=== PATIENT | male | born 1955 | race Caucasian/White ===

== ENCOUNTER 2021-07-27 09:31 | Outpatient (REF) | payer OTHER, SELFPAY ==
[2021-07-27 10:33] LABS: MANUAL DIFF FLAG NO
[2021-07-27 10:54] LABS: Basophils Absolute Auto 0.1 X10*3/uL (0.0-0.2); Basophils Percent Auto 1.3 % (0-2); Eosinophils Absolute Auto 0.4 X10*3/uL (0.0-0.4); Eosinophils Percent Auto 3.7 % (0-4); Hematocrit 47.1 % (42-52); Hemoglobin 15.8 g/dl (14.0-18.0); Imm Gran Abs Auto 0.14 X10*3/uL (0.00-0.03); Imm Gran Pct Auto 1.3 % (0.0-0.4); Lymphocytes Absolute Auto 3.4 X10*3/uL (1.2-4.9); Lymphocytes Percent Auto 31.9 % (20-40); Mean Corpuscular HGB Conc 33.5 g/dl (31.0-36.0); Mean Corpuscular Hemoglobin 31.7 pg (27.0-33.0); Mean Corpuscular Volume 94.4 fL (80-98); Mean Platelet Volume 10.9 fL (9.4-12.4); Monocytes Absolute Auto 1.1 X10*3/uL (0.1-1.2); Monocytes Percent Auto 10.4 % (2-11); Neutrophils Absolute Auto 5.5 X10*3/uL (2.0-8.3); Neutrophils Percent Auto 51.4 % (45-73); Platelet Count 187 X10*3/uL (160-400); Red Blood Count 4.99 X10*6/uL (4.60-5.80); White Blood Count 10.7 X10*3/uL (4.8-10.8)
[2021-07-27 11:20] LABS: Alanine Aminotransferase 38 U/L (0-40); Albumin Level 4.1 g/dL (3.5-5.0); Alkaline Phosphatase 112 U/L (39-117); Anion Gap 12 (12-20); Aspartate Amino Transferase 39 U/L (5-37); Bilirubin Total 0.9 mg/dL (0.0-1.0); Blood Urea Nitrogen 8 mg/dL (9-16); Calcium 9.6 mg/dL (8.4-10.2); Carbon Dioxide 25 mmol/L (22-29); Chloride 107 mmol/L (96-108); Estimated Glomerular Filt Rate > 60; Glucose Random 97 mg/dL (60-115); Potassium 4.9 mmol/L (3.3-5.1); Sodium 139 mmol/L (135-145); Total Protein 7.4 g/dL (6.5-8.0)
== END 2021-07-27 09:32 | disposition home or self-care (01) ==
LOC: HO.LAB 09:31
PROVIDERS: PCP Registered Nurse; Visit Provider Nurse Practitioner
DX: D12.6 Benign neoplasm of colon, unspecified (principal); G47.33 Obstructive sleep apnea (adult) (pediatric); I21.4 Non-ST elevation (NSTEMI) myocardial infarction; J44.9 Chronic obstructive pulmonary disease, unspecified
CPT/HCPCS: 36415; 80053; 85025; 99212

== ENCOUNTER 2021-11-12 08:13 | Day surgery (SDC) | payer OTHER, SELFPAY ==
--- NOTE | 2021-11-09 11:58 | P.CONAN_ITS ---
Documented by User: Kalie Potts NP 11/09/21 13:54 HPI - Anesthesia Eval Consult details Narrative: 66yo M for Colonoscopy Unable to reach patient by phone. 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 Per 09/2021 PCP visit, last seen by cardiology 07/31 [facility] Active Problems Active Problems: All Active Problems (Updated 07/24/21 @ 14:48 by LEIGH Barbosa) Tubular adenoma of colon (Acute) Osteoporosis (Acute) GERD (gastroesophageal reflux disease) (Acute) Osteoarthritis of both knees (Acute) Lumbar degenerative disc disease (Acute) Chronic pain syndrome (Acute) High cholesterol (Acute) Atherosclerotic cardiovascular disease (Acute) NSTEMI (non-ST elevated myocardial infarction) (Acute) COPD (chronic obstructive pulmonary disease) (Acute) HENRY (obstructive sleep apnea) (Acute) Past Medical History Medical History Atherosclerotic cardiovascular disease Chronic pain syndrome COPD (chronic obstructive pulmonary disease) GERD (gastroesophageal reflux disease) High cholesterol Lumbar degenerative disc disease NSTEMI (non-ST elevated myocardial infarction) HENRY (obstructive sleep apnea) Osteoarthritis of both knees Presence of stent in LAD coronary artery Surgical History Surgical History H/O colonoscopy History of appendectomy Social History Social History Patient Tobacco Use Status: Current everyday Tobacco user Tobacco use type: Cigarette Cigarette Packs Per Day: 1 Cigarettes Per Day: 20.0 Meds Allergies Allergy/AdvReac Type Severity Reaction Status Date / Time No Known Allergies Allergy Verified 11/12/21 08:28 [No Known Allergies*] Home Medications Medication Instructions Recorded Confirmed Last Taken Type aspirin 81 mg 81 mg PO DAILY 07/27/21 Unknown History tablet,delayed release atorvastatin 20 20 mg PO DAILY 07/27/21 Unknown History mg tablet calcium carbonate 1 tab PO DAILY 07/27/21 Unknown History 1,000 mg-vitamin D3 20 mcg (800 unit) tablet carvedilol 6.25 6.25 mg PO BID 07/27/21 Unknown History mg tablet latanoprost 0.005 1 drp OPHTHALMIC 07/27/21 Unknown History % eye drops (EYE) QPM ml omeprazole 40 mg 40 mg PO DAILY 07/27/21 Unknown History capsule,delayed release tramadol 50 mg 50 mg PO Q6H PRN 07/27/21 Unknown History tablet Exam Exam Date and Time: November 09, 2021 1158 Documented by User: Margarita Bhat MD 11/12/21 09:21 [facility] Past Medical History Medical History Atherosclerotic cardiovascular disease Chronic pain syndrome COPD (chronic obstructive pulmonary disease) GERD (gastroesophageal reflux disease) High cholesterol Lumbar degenerative disc disease NSTEMI (non-ST elevated myocardial infarction) HENRY (obstructive sleep apnea) Osteoarthritis of both knees Presence of stent in LAD coronary artery Family History Family history of problems with anesthesia: No Surgical History Surgical History H/O colonoscopy History of appendectomy History of Problems with Anesthesia: No Social History Social History Patient Tobacco Use Status: Current everyday Tobacco user Tobacco use type: Cigarette Cigarette Packs Per Day: 1 Cigarettes Per Day: 20.0 Meds Allergies Allergy/AdvReac Type Severity Reaction Status Date / Time No Known Allergies Allergy Verified 11/12/21 08:28 [No Known Allergies*] Home Medications Medication Instructions Recorded Confirmed Last Taken Type aspirin 81 mg 81 mg PO DAILY 07/27/21 Unknown History tablet,delayed release atorvastatin 20 20 mg PO DAILY 07/27/21 Unknown History mg tablet calcium carbonate 1 tab PO DAILY 07/27/21 Unknown History 1,000 mg-vitamin D3 20 mcg (800 unit) tablet carvedilol 6.25 6.25 mg PO BID 07/27/21 Unknown History mg tablet latanoprost 0.005 1 drp OPHTHALMIC 07/27/21 Unknown History % eye drops (EYE) QPM ml omeprazole 40 mg 40 mg PO DAILY 07/27/21 Unknown History capsule,delayed release tramadol 50 mg 50 mg PO Q6H PRN 07/27/21 Unknown History tablet Exam Airway Mallampati Class: II TM Dist: >3cm Neck ROM: Full Heart: rrr Lungs: cta Assessment and Plan Assessment Anesthesia Assessment: Anesthesia Plan Discussed and Chart Reviewed Final Anesthetic Review Family History of Problems with Anesthesia: No History of Problems with Anesthesia: No NPO: Yes ASA Class: III Final Preanesthetic Review: No Changes in Pt Med Stat, Meds/Allgs Chart Reviewed and Consent Obtained/Reviewed Patient Risk: Intermediate Procedure Risk: Intermediate Anesthetic Plan Anesthetic Plan: MAC: Disposition: Standard PACU
[2021-11-12 08:28] VITALS: BMI 35.5
[2021-11-12 08:34] VITALS: BP 145/89; PULSE 66; RESP 16; TEMP 36.9; O2SAT 96
[2021-11-12] MEDS: Lactated Ringers 1,000 ML 100 ML IVCONT (08:56)
--- NOTE | 2021-11-12 09:17 | P.HPSUR_ITS ---
Pre-Procedural Eval Section A Date of Service: 11/12/21 Section B Chief Complaint: Tubular Adenoma of Colon Relevant Family History (Specify if Yes): No Relevant Social History: Tobacco Use Present Medications: see Short Stay Collaborative assessment Medical History: Significant History (Atherosclerotic cardiovascular disease Chronic pain syndrome COPD (chronic obstructive pulmonary disease) GERD (leticia roesophageal reflux disease) High cholesterol Lumbar degenerative disc disease NSTEMI (non-ST elevated myocardial infarction) HENRY (obstructive sleep apnea) Osteoarthritis of both knees) History of Previous Operations: Relevant previous surgery/procedure and date(s) (H/O colonoscopy History of appendectomy) Allergies: Allergies Allergy/AdvReac Type Severity Reaction Status Date / Time No Known Allergies Allergy Verified 11/12/21 08:28 [No Known Allergies*] Review of Systems Sugical H&P ROS: Negative: Constitution, Cardiovascular, Respiratory, Neurological, Psychiatric, Hem-Onc, Allergic/Immunologic, Gastrointestinal, Genitourinary, Musculoskeletal, Integumentary, Endocrine and Eyes/Ears/Nose/Throat Exam Surgical H&P Exam: Normal: HEENT, Normal: Heart, Normal: Lungs, Normal: Extremities, Normal: Abdomen, Normal: Skin and Normal: Neurological Plan Diagnosis/Plan: Unchanged I have reviewed the history and physical and performed a pertinent physical examination on my patient. No changes have occurred unless specified.
--- NOTE | 2021-11-12 10:12 | P.BOP_ITS ---
Brief Operative Note Date of Service: 11/12/21 Pre-op diagnosis: hx of polyps Post-op diagnosis: same Procedure: see op note Surgeon: Yfn Thompson MD Anesthesia: MAC Was an Post Acute Care Nurse used for this Procedure?: No Estimated blood loss (mL): 0 Condition: stable Disposition: PACU
--- NOTE | 2021-11-12 10:13 | P.OP_ITS ---
Operative Note Operative Note Date of Service: 11/12/21 Narrative: Operative Information Procedure Description: Colonoscopy COLONOSCOPY Instrument: Olympus variable stiffness ADULT scope 190L Colonoscopy Monitoring: Vital signs and clinical assessment, continuous EKG monitoring, Pulse oximetry, Carbon Dioxide monitoring and blood pressure monitoring were done throughout the procedure. Colon withdrawal time was 31 minutes. Procedure: The patient was placed in the left lateral decubitis position and pre-procedure medications were administered. After a digital rectal examination of the ano-rectum, the video colonoscope was inserted into the rectum and advanced through the colon to the cecum/TI. The colonoscope was slowly withdrawn in a retrograde panoramic fashion and the colon mucosa was carefully examined including a retroflexed view of the rectum. Findings and interventions are described below. Procedure Difficulty: moderate due to looping Findings: Terminal Ileum-not intubated Cecum:normal Ascending Colon: 4-6 mm sessile polyp removed with forceps Transverse Colon -normal, few diverticula noted Descending Colon:distal area with lipoma 15 mm. mid descending area with lateral spreading granular lesion 15-20 mm in length (Nyla 0-IIa) , lifted with orise and then removed piece meal with hot snare, and edges ablated with soft tip coag. Sigmoid Colon: many diverticula seen of varying sizes Rectum: Retroflexion with moderate sized internal hemorrhoids, grade I with skin tags Anorectum - normal Colon preparation: [place] Bowel Preparation Scale Right colon; 2 Transverse colon: 2 Left colon; 2 (0 = Unprepared colon segment with mucosa not seen due to solid stool that cannot be cleared. 1 = Portion of mucosa of the colon segment seen, but other areas of the colon segment not well seen due to staining, residual stool and/or opaque liquid. 2 = Minor amount of residual staining, small fragments of stool and/or opaque liquid, but mucosa of colon segment seen well. 3 = Entire mucosa of colon segment seen well with no residual staining, small fragments of stool or opaque liquid) Impression and Post Procedure Diagnosis: polyps internal hemorrhoids diverticular disease lipoma Plan: High fiber diet leaflet Avoid straining at stool, epsom salts and sitz bath, anusol supps or cream Repeat Colonoscopy in 1 year or earlier if clinically indicated, next time I will use distal attachment Above findings were reviewed with the patient and relevant handouts were provided if indicated.
[2021-11-12 10:16] VITALS: BP 127/79; PULSE 89; RESP 16; TEMP 37.3; O2SAT 96
[2021-11-12 10:31] VITALS: BP 141/78; PULSE 75; RESP 18; TEMP 37.1; O2SAT 96
== END 2021-11-12 11:50 | disposition home or self-care (01) ==
PROVIDERS: PCP Registered Nurse; Visit Provider Internal Medicine Gastroenterology
PROC: 0DJD8ZZ Inspection of Lower Intestinal Tract, Via Natural or Artificial Opening Endoscopic (ICD-10-PCS; CPT 45378; principal; 2021-11-12 09:20)
DX: Z12.11 Encounter for screening for malignant neoplasm of colon (principal); Z86.010 Personal history of colon polyps; D12.4 Benign neoplasm of descending colon; K63.5 Polyp of colon; K57.30 Diverticulosis of large intestine without perforation or abscess without bleeding; K64.0 First degree hemorrhoids; K21.9 Gastro-esophageal reflux disease without esophagitis; G47.33 Obstructive sleep apnea (adult) (pediatric); J44.9 Chronic obstructive pulmonary disease, unspecified; I25.10 Atherosclerotic heart disease of native coronary artery without angina pectoris; I25.2 Old myocardial infarction; E78.00 Pure hypercholesterolemia, unspecified; G89.4 Chronic pain syndrome; M81.0 Age-related osteoporosis without current pathological fracture; Z79.82 Long term (current) use of aspirin; Z79.899 Other long term (current) drug therapy; F17.210 Nicotine dependence, cigarettes, uncomplicated
CPT/HCPCS: 45385; 45380; 45381; 88305

== ENCOUNTER → 2021-12-11 09:37 | Outpatient (BNVA) | payer OTHER, SELFPAY | PROVIDERS: PCP Registered Nurse; Visit Provider Nurse Practitioner | DX: D12.6 Benign neoplasm of colon, unspecified (principal); J44.9 Chronic obstructive pulmonary disease, unspecified; I21.4 Non-ST elevation (NSTEMI) myocardial infarction; G47.33 Obstructive sleep apnea (adult) (pediatric); F17.210 Nicotine dependence, cigarettes, uncomplicated | CPT/HCPCS: 99212 ==

== ENCOUNTER 2022-09-10 10:41 | Outpatient (REF) | payer OTHER, SELFPAY ==
[2022-09-10 12:34] LABS: Alanine Aminotransferase 21 U/L (0-40); Alkaline Phosphatase 85 U/L (39-117); Anion Gap 11 (12-20); Aspartate Amino Transferase 20 U/L (5-37); Bilirubin Total 0.8 mg/dL (0.0-1.0); Blood Urea Nitrogen 10 mg/dL (9-16); Calcium 9.2 mg/dL (8.4-10.2); Carbon Dioxide 27 mmol/L (22-29); Chloride 105 mmol/L (96-108); Estimated Glomerular Filt Rate > 60; Glucose Random 90 mg/dL (60-115); Potassium 5.2 mmol/L (3.3-5.1); Sodium 138 mmol/L (135-145)
== END 2022-09-10 10:42 | disposition home or self-care (01) ==
LOC: HO.LAB 10:41
PROVIDERS: PCP Registered Nurse; Visit Provider Nurse Practitioner
DX: Z01.818 Encounter for other preprocedural examination (principal); D12.6 Benign neoplasm of colon, unspecified; G47.33 Obstructive sleep apnea (adult) (pediatric); J44.9 Chronic obstructive pulmonary disease, unspecified
CPT/HCPCS: 36415; 80053; 99212

== ENCOUNTER 2022-11-28 10:17 | Day surgery (SDC) | payer OTHER, SELFPAY ==
[2022-11-26 13:11] VITALS: BMI 34.0
[2022-11-28 10:29] VITALS: BP 129/72; PULSE 80; RESP 17; TEMP 36.2; O2SAT 97; BMI 33.5
--- NOTE | 2022-11-28 10:46 | MHC.SHP ---
Pre-Procedural Eval Section A Date of Service: 11/28/22 Section B Chief Complaint: Benign neoplasm, Relevant Family History (Specify if Yes): No Relevant Social History: Tobacco Use Present Medications: see Short Stay Collaborative assessment Medical History: Significant History ( Atherosclerotic cardiovascular disease Chronic pain syndrome COPD (chronic obstructive pulmonary disease) GERD (gastroesophageal reflux disease) High cholesterol Lumbar degenerative disc disease NSTEMI (non-ST elevated myocardial infarction) HENRY (obstructive sleep apnea) Osteoarthritis of both knee) History of Previous Operations: Relevant previous surgery/procedure and date(s) (H/O colonoscopy History of appendectomy) Allergies: Allergies Allergy/AdvReac Type Severity Reaction Status Date / Time mold Allergy Severe Anaphylaxis Verified 11/26/22 13:07 black mold Allergy Hives, Uncoded 11/26/22 13:07 anaphylaxis Review of Systems Sugical H&P ROS: Negative: Constitution, Cardiovascular, Respiratory, Neurological, Psychiatric, Hem-Onc, Allergic/Immunologic, Gastrointestinal, Genitourinary, Musculoskeletal, Integumentary, Endocrine and Eyes/Ears/Nose/Throat Exam Surgical H&P Exam: Normal: HEENT, Normal: Heart, Normal: Lungs, Normal: Extremities, Normal: Abdomen, Normal: Skin and Normal: Neurological Plan Diagnosis/Plan: Unchanged I have reviewed the history and physical and performed a pertinent physical examination on my patient. No changes have occurred unless specified. Time Spent With Patient Time: Total time managing care of this patient today ____ minutes.
--- NOTE | 2022-11-28 10:52 | HO.ANESPROP2 ---
[facility] Active Problems Active Problems: All Active Problems (Updated 09/10/22 @ 17:39 by LEIGH Barbosa) HENRY (obstructive sleep apnea) (Acute) COPD (chronic obstructive pulmonary disease) (Acute) Pre-op examination (Acute) Tubulovillous adenoma of colon (Acute) GERD (gastroesophageal reflux disease) (Acute) Tubular adenoma of colon (Acute) Osteoporosis (Acute) Past Medical History Medical History Atherosclerotic cardiovascular disease Chronic pain syndrome COPD (chronic obstructive pulmonary disease) GERD (gastroesophageal reflux disease) High cholesterol Lumbar degenerative disc disease NSTEMI (non-ST elevated myocardial infarction) HENRY (obstructive sleep apnea) Osteoarthritis of both knees Presence of stent in LAD coronary artery Family History Family history of problems with anesthesia: No Surgical History Surgical History H/O colonoscopy History of appendectomy History of Problems with Anesthesia: No Social History Social History Alcohol intake: current Patient Tobacco Use Status: Current everyday Tobacco user Tobacco use type: Cigarette Cigarette Packs Per Day: 1 Cigarettes Per Day: 20.0 Use of substances other than those prescribed or required for medical reasons: Yes Substance Use Type: Marijuana Substance Use Frequency: Occasionally Advance Directives: No Advance Directives Information Provided: Yes Meds Allergies Allergy/AdvReac Type Severity Reaction Status Date / Time mold Allergy Severe Anaphylaxis Verified 11/26/22 13:07 black mold Allergy Hives, Uncoded 11/26/22 13:07 anaphylaxis Home Medications Medication Instructions Recorded Confirmed Last Taken Type aspirin 81 mg tablet,delayed 81 mg PO DAILY 07/27/21 11/26/22 Unknown History release atorvastatin 20 mg tablet 20 mg PO DAILY 07/27/21 11/26/22 Unknown History calcium carbonate 1,000 mg-vitamin 1 tab PO DAILY 07/27/21 11/26/22 Unknown History D3 20 mcg (800 unit) tablet carvedilol 6.25 mg tablet 6.25 mg PO BID 07/27/21 11/26/22 Unknown History latanoprost 0.005 % eye drops 1 drp ophthalmic (eye) QPM 07/27/21 11/26/22 Unknown History omeprazole 40 mg capsule,delayed 40 mg PO DAILY 07/27/21 11/26/22 Unknown History release tramadol 50 mg tablet 50 mg PO Q6H PRN Pain 07/27/21 11/26/22 Unknown History albuterol sulfate 90 mcg/actuation 2 puff inhalation Q4-6H PRN 09/10/22 11/26/22 Unknown History aerosol inhaler Wheezing clotrimazole 1 % topical cream appl topical BID 09/10/22 Unknown History lisinopril 10 mg tablet 10 mg PO DAILY 09/10/22 11/26/22 Unknown History nicotine 21 mg/24 hr daily 11/26/22 11/26/22 Unknown History transdermal patch Exam Exam Date and Time: November 28, 2022 1052 Height,Weight and Vital Signs: Height 5 ft 6 in Weight 94.347 kg Last Vital Signs Temp 97.2 F 11/28/22 10:29 Pulse 80 11/28/22 10:29 Resp 17 11/28/22 10:29 BP 129/72 11/28/22 10:29 Pulse Ox 97 11/28/22 10:29 O2 Del Method 11/28/22 10:29 Airway Mallampati Class: III (Edentulous. Full monge.) TM Dist: >3cm Neck ROM: Full Denture: Upper Partial: Lower Loose/Missing/Broken Teeth: Yes, Upper and Lower Heart: RRR Lungs: CTA Assessment and Plan Assessment Anesthesia Assessment: Anesthesia Plan Discussed and Chart Reviewed Final Anesthetic Review Family History of Problems with Anesthesia: No History of Problems with Anesthesia: No NPO: Yes ASA Class: III Final Preanesthetic Review: Meds/Allgs Chart Reviewed, Consent Obtained/Reviewed and Anes Risks/Benef Reviewed Patient Risk: Intermediate Procedure Risk: Low Anesthetic Plan Anesthetic Plan: MAC: Disposition: Standard PACU
--- NOTE | 2022-11-28 10:59 | W.PM.OPN ---
Operative Note Operative Note Date of Service: 11/28/22 Narrative: Operative Information Procedure Description: Colonoscopy Indication: hx of polyps Anesthesia: MAC COLONOSCOPY Instrument: Olympus variable stiffness pediatric scope 190L Colonoscopy Monitoring: Vital signs and clinical assessment, continuous EKG monitoring, Pulse oximetry, Carbon Dioxide monitoring and blood pressure monitoring were done throughout the procedure. Colon withdrawal time was 19 minutes. Procedure: The patient was placed in the left lateral decubitis position and pre-procedure medications were administered. After a digital rectal examination of the ano-rectum, the video colonoscope was inserted into the rectum and advanced through the colon to the cecum/TI. The colonoscope was slowly withdrawn in a retrograde panoramic fashion and the colon mucosa was carefully examined including a retroflexed view of the rectum. Findings and interventions are described below. Procedure Difficulty: mdoerate, pressure applied to reach cecum, distal attachment used Findings: Terminal Ileum-not intubated Cecum:normal, not fully seen due to thick debris Ascending Colon: few scattered wide mouth tics seen, moderate sized lipoma at hepatic, 5-6 mm sessile polyp removed with cold forceps Transverse Colon -normal Descending Colon: 7-8 mm sessile polyp removed with cold snare Sigmoid Colon: moderate severe diverticulosis, x 1 sessile polyp 7-8 mm removed with cold snare and another sessile polyp 5-7 mm removed with cold forceps Rectum: Retroflexion with medium sized internal hemorrhoids, grade I, x3 sessile polyps 8-9 mm removed with cold snare, one area needed a clip applied, another 5-6 mm sessile polyp removed with cold forceps Anorectum - normal Colon preparation: [place] Bowel Preparation Scale Right colon; 2 Transverse colon: 2 Left colon; 2 (0 = Unprepared colon segment with mucosa not seen due to solid stool that cannot be cleared. 1 = Portion of mucosa of the colon segment seen, but other areas of the colon segment not well seen due to staining, residual stool and/or opaque liquid. 2 = Minor amount of residual staining, small fragments of stool and/or opaque liquid, but mucosa of colon segment seen well. 3 = Entire mucosa of colon segment seen well with no residual staining, small fragments of stool or opaque liquid) Impression and Post Procedure Diagnosis: polyps internal hemorrhoids diverticular disease Plan: High fiber diet leaflet Avoid straining at stool, epsom salts and sitz bath, anusol supps or cream Repeat Colonoscopy in 2-3 years or earlier if clinically indicated can restart aspirin tomorrow Above findings were reviewed with the patient and relevant handouts were provided if indicated.
[2022-11-28 11:35] VITALS: BP 95/55; PULSE 95; RESP 20; TEMP 36.6; O2SAT 20
[2022-11-28 11:51] VITALS: BP 117/66; PULSE 80; RESP 18; TEMP 36.6; O2SAT 97
== END 2022-11-28 13:04 | disposition home or self-care (01) ==
PROVIDERS: PCP Registered Nurse; Visit Provider Internal Medicine Gastroenterology
PROC: 0DJD8ZZ Inspection of Lower Intestinal Tract, Via Natural or Artificial Opening Endoscopic (ICD-10-PCS; CPT 45378; principal; 2022-11-28 11:30)
DX: Z12.11 Encounter for screening for malignant neoplasm of colon (principal); Z86.010 Personal history of colon polyps; K63.5 Polyp of colon; K62.1 Rectal polyp; K57.30 Diverticulosis of large intestine without perforation or abscess without bleeding; K64.0 First degree hemorrhoids; I25.10 Atherosclerotic heart disease of native coronary artery without angina pectoris; Z98.61 Coronary angioplasty status; I25.2 Old myocardial infarction; E78.00 Pure hypercholesterolemia, unspecified; F17.210 Nicotine dependence, cigarettes, uncomplicated; J44.9 Chronic obstructive pulmonary disease, unspecified; G47.33 Obstructive sleep apnea (adult) (pediatric); K21.9 Gastro-esophageal reflux disease without esophagitis; G89.4 Chronic pain syndrome; M51.36 Other intervertebral disc degeneration, lumbar region; M17.0 Bilateral primary osteoarthritis of knee; Z79.82 Long term (current) use of aspirin; Z79.899 Other long term (current) drug therapy
CPT/HCPCS: 45385; 45380; 88305

== ENCOUNTER → 2023-01-03 12:33 | Outpatient (BNVA) | payer OTHER, SELFPAY | PROVIDERS: PCP Registered Nurse; Visit Provider Nurse Practitioner | DX: D12.6 Benign neoplasm of colon, unspecified (principal) | CPT/HCPCS: 99212 ==

== ENCOUNTER 2023-07-02 13:26 | Day surgery (SDC) | payer OTHER, SELFPAY ==
[2023-06-27 09:09] VITALS: BMI 33.6
--- NOTE | 2023-07-01 13:18 | HO.ANESPROP2 ---
Documented by User: Kalie Potts NP 07/01/23 13:19 HPI - Anesthesia Eval Consult details Narrative: 67yo M for Right Lateral rectus Eye Muscle Recession,Right Medial rectius Resection PCP cleared. Stable CAD without unstable angina and history of emphysema noted on CT scan without exacerbation or symptoms PMFSH Active Problems Active Problems: All Active Problems (Updated 06/27/23 @ 09:01 by Venessa Ontiveros RN) Pre-op examination (Acute) Tubulovillous adenoma of colon (Acute) Tubular adenoma of colon (Acute) Osteoporosis (Acute) HENRY (obstructive sleep apnea) (Acute) COPD (chronic obstructive pulmonary disease) (Acute) GERD (gastroesophageal reflux disease) (Acute) Past Medical History Medical History Myocardial infarction Cervical radiculopathy Benign neoplasm of colon Benign essential tremor Pulmonary nodule Centrilobular emphysema Vitamin D deficiency Mixed hyperlipidemia Disc displacement, lumbar Postlaminectomy syndrome Glaucoma Hx of fracture CAD (coronary artery disease) Presence of stent in LAD coronary artery GERD (gastroesophageal reflux disease) Osteoarthritis of both knees Lumbar degenerative disc disease Chronic pain syndrome High cholesterol Atherosclerotic cardiovascular disease NSTEMI (non-ST elevated myocardial infarction) COPD (chronic obstructive pulmonary disease) HENRY (obstructive sleep apnea) Family History Family history of problems with anesthesia: No Surgical History Surgical History Hx of heart artery stent Hx of tonsillectomy S/P nasal endoscopy with nasal polypectomy History of surgery on right wrist Hx of cataract extraction H/O colonoscopy History of appendectomy History of Problems with Anesthesia: No Social History Social History Are you a primary director of managed care to a significant other at home: No Do you presently have visiting nurse or other home services: No Alcohol intake: current Alcohol intake frequency: a few times a month Patient Tobacco Use Status: Current everyday Tobacco user Tobacco use type: Cigarette Cigarette Packs Per Day: 1 Cigarettes Per Day: 15 Use of substances other than those prescribed or required for medical reasons: No Substance Use Type: Marijuana Have you been hit, kicked, punched, or otherwise hurt by someone within the past year? If so, by whom?: No Are you DNR?: No Advance Directives: No Advance Directives Information Provided: Yes Advance Directives on File: No Recently lost weight without trying: No Eating poorly because of decreased appetite: No Nutrition Risks: No Nutritional Risk Poor oral hygiene: Yes (full upper denture and partial bottom) Meds Allergies Allergy/AdvReac Type Severity Reaction Status Date / Time mold Allergy Severe Anaphylaxis Verified 01/03/23 12:54 black mold Allergy Hives, Uncoded 11/26/22 13:07 anaphylaxis Home Medications Medication Instructions Recorded Confirmed Last Taken Type aspirin 81 mg tablet,delayed 81 mg PO DAILY 07/27/21 06/27/23 07/02/23 History release atorvastatin 20 mg tablet 20 mg PO BEDTIME 07/27/21 06/27/23 Unknown History calcium carbonate 1,000 mg-vitamin 1 tab PO DAILY 07/27/21 06/27/23 Unknown History D3 20 mcg (800 unit) tablet carvedilol 6.25 mg tablet 6.25 mg PO BID 07/27/21 06/27/23 07/02/23 History latanoprost 0.005 % eye drops 1 drp ophthalmic (eye) QPM 07/27/21 06/27/23 Unknown History omeprazole 40 mg capsule,delayed 40 mg PO DAILY 07/27/21 06/27/23 07/02/23 History release tramadol 50 mg tablet 50 mg PO Q6H PRN Pain 07/27/21 06/27/23 Unknown History albuterol sulfate 90 mcg/actuation 2 puff inhalation Q4-6H PRN 09/10/22 06/27/23 Unknown History aerosol inhaler Wheezing lisinopril 10 mg tablet 10 mg PO DAILY 09/10/22 06/27/23 Unknown History Exam Exam Date and Time: July 01, 2023 1318 Height,Weight and Vital Signs: Height 5 ft 6 in Weight 94.347 kg Assessment and Plan Assessment Anesthesia Assessment: Chart Reviewed Final Anesthetic Review Family History of Problems with Anesthesia: No History of Problems with Anesthesia: No Documented by User: Zoila Eli MD 07/02/23 14:20 PMFSH Past Medical History Medical History Myocardial infarction Cervical radiculopathy Benign neoplasm of colon Benign essential tremor Pulmonary nodule Centrilobular emphysema Vitamin D deficiency Mixed hyperlipidemia Disc displacement, lumbar Postlaminectomy syndrome Glaucoma Hx of fracture CAD (coronary artery disease) Presence of stent in LAD coronary artery GERD (gastroesophageal reflux disease) Osteoarthritis of both knees Lumbar degenerative disc disease Chronic pain syndrome High cholesterol Atherosclerotic cardiovascular disease NSTEMI (non-ST elevated myocardial infarction) COPD (chronic obstructive pulmonary disease) HENRY (obstructive sleep apnea) Surgical History Surgical History Hx of heart artery stent Hx of tonsillectomy S/P nasal endoscopy with nasal polypectomy History of surgery on right wrist Hx of cataract extraction H/O colonoscopy History of appendectomy Social History Social History Are you a primary director of managed care to a significant other at home: No Do you presently have visiting nurse or other home services: No Alcohol intake: current Alcohol intake frequency: a few times a month Patient Tobacco Use Status: Current everyday Tobacco user Tobacco use type: Cigarette Cigarette Packs Per Day: 1 Cigarettes Per Day: 15 Use of substances other than those prescribed or required for medical reasons: No Substance Use Type: Marijuana Have you been hit, kicked, punched, or otherwise hurt by someone within the past year? If so, by whom?: No Are you DNR?: No Advance Directives: No Advance Directives Information Provided: Yes Advance Directives on File: No Recently lost weight without trying: No Eating poorly because of decreased appetite: No Nutrition Risks: No Nutritional Risk Poor oral hygiene: Yes (full upper denture and partial bottom) Meds Allergies Allergy/AdvReac Type Severity Reaction Status Date / Time mold Allergy Severe Anaphylaxis Verified 01/03/23 12:54 black mold Allergy Hives, Uncoded 11/26/22 13:07 anaphylaxis Home Medications Medication Instructions Recorded Confirmed Last Taken Type aspirin 81 mg tablet,delayed 81 mg PO DAILY 07/27/21 06/27/23 07/02/23 History release atorvastatin 20 mg tablet 20 mg PO BEDTIME 07/27/21 06/27/23 Unknown History calcium carbonate 1,000 mg-vitamin 1 tab PO DAILY 07/27/21 06/27/23 Unknown History D3 20 mcg (800 unit) tablet carvedilol 6.25 mg tablet 6.25 mg PO BID 07/27/21 06/27/23 07/02/23 History latanoprost 0.005 % eye drops 1 drp ophthalmic (eye) QPM 07/27/21 06/27/23 Unknown History omeprazole 40 mg capsule,delayed 40 mg PO DAILY 07/27/21 06/27/23 07/02/23 History release tramadol 50 mg tablet 50 mg PO Q6H PRN Pain 07/27/21 06/27/23 Unknown History albuterol sulfate 90 mcg/actuation 2 puff inhalation Q4-6H PRN 09/10/22 06/27/23 Unknown History aerosol inhaler Wheezing lisinopril 10 mg tablet 10 mg PO DAILY 09/10/22 06/27/23 Unknown History Exam Airway Mallampati Class: II TM Dist: >3cm Neck ROM: Limited Denture: Upper and Lower Loose/Missing/Broken Teeth: Yes, Upper and Lower Heart: RRR Lungs: CTA Assessment and Plan Assessment Anesthesia Assessment: Anesthesia Plan Discussed Final Anesthetic Review NPO: Yes ASA Class: III Final Preanesthetic Review: Meds/Allgs Chart Reviewed, Consent Obtained/Reviewed and Anes Risks/Benef Reviewed Patient Risk: Intermediate Procedure Risk: Low Anesthetic Plan Anesthetic Plan: GA Disposition: Standard PACU
[2023-07-02 13:53] VITALS: BP 133/67; PULSE 74; RESP 16; TEMP 37.2; O2SAT 95
[2023-07-02] MEDS: Lactated Ringers 1,000 ML 100 ML IVCONT (14:00)
--- NOTE | 2023-07-02 15:37 | HO.OPHTHAL ---
Ophthalmology Operative Note Date of Service: 07/02/23 Narrative: Diagnosis exotropia. Procedures 1. Recession of right lateral rectus 9 mm 2. Resection of right medial rectus [address] benavidez anesthesia general. Complications none. The patient was brought to the operating room placed under general anesthesia. The right eye was prepped and draped in the usual sterile ophthalmic fashion. A lid speculum was placed in the right eye and a peritomy was created around the lateral rectus muscle. The muscle was hooked and secured with a double-armed Vicryl suture. It was disinserted from the globe and reattached to a position 9 mm behind its original insertion. Conjunctiva was closed with interrupted Vicryl sutures. A peritomy was created around the medial rectus and the muscle was hooked and secured with a Boby muscle clamp. A 7 mm resection was marked off with cautery the resection point secured with a double-armed Vicryl suture. The distal muscle was resected and the resection point was drawn to the original insertion using the Vicryl suture. Conjunctiva was closed with interrupted Vicryl sutures. The patient was then awoken from general anesthesia and discharged to postoperative recovery in good condition.
[2023-07-02 15:51] VITALS: BP 145/72; PULSE 77; RESP 17; TEMP 36.4; O2SAT 99
[2023-07-02 15:55] VITALS: BP 137/56; PULSE 74; RESP 16; O2SAT 99
[2023-07-02 16:00] VITALS: BP 136/66; PULSE 74; RESP 16; O2SAT 99
[2023-07-02 16:05] VITALS: BP 138/70; PULSE 71; RESP 16; O2SAT 99
[2023-07-02] MEDS: oxyCODONE HCl Immed Release 5 MG TABLET PO (16:12)
[2023-07-02 16:20] VITALS: BP 125/53; PULSE 73; RESP 16; TEMP 36.6; O2SAT 95
== END 2023-07-02 16:24 | disposition home or self-care (01) ==
PROVIDERS: PCP Registered Nurse; Visit Provider Ophthalmology
PROC: (CPT 67312; principal; 2023-07-02 15:40)
DX: H50.15 Alternating exotropia (principal); I25.10 Atherosclerotic heart disease of native coronary artery without angina pectoris; I25.2 Old myocardial infarction; Z95.5 Presence of coronary angioplasty implant and graft; G47.33 Obstructive sleep apnea (adult) (pediatric); K21.9 Gastro-esophageal reflux disease without esophagitis; J44.9 Chronic obstructive pulmonary disease, unspecified; E78.2 Mixed hyperlipidemia; G25.0 Essential tremor; M96.1 Postlaminectomy syndrome, not elsewhere classified; M81.0 Age-related osteoporosis without current pathological fracture; G89.4 Chronic pain syndrome; E55.9 Vitamin D deficiency, unspecified; Z79.82 Long term (current) use of aspirin; Z79.899 Other long term (current) drug therapy; F17.210 Nicotine dependence, cigarettes, uncomplicated; H40.9 Unspecified glaucoma
CPT/HCPCS: 67312; J1100; J1885; J2405; J3010